=== PATIENT | male | born 2000 | race Two or more races ===

== ENCOUNTER 2022-11-02 11:18 | Emergency (ER) | payer OTHER ==
[~2022-11-02] VITALS: Ht 162.6 cm; Wt 61.2 kg
== END 2022-11-02 19:30 | disposition home or self-care (01) ==
LOC: ER 11:18
DX: A05.9 Bacterial foodborne intoxication, unspecified (principal); Z91.013 Allergy to seafood; Z20.822 Contact with and (suspected) exposure to COVID-19